=== PATIENT | female | born 1980 | race Caucasian/White ===

== ENCOUNTER 2018-03-02 12:07 | Day surgery (SDC) | payer SELFPAY ==
--- NOTE | 2018-03-02 | EMB_PTH ---
PATIENT: RICK PRESCOTT [place] [facility] [id number] AGE/SX: 37/F ROOM: RE03/02/[address]: Dr. Rick Bee MD : 1980 BED: DIS: 03/02/2018 SPEC #: [id number] RECD: 03/02/18 15:10 STATUS: JONO ADONIS #: [id number] JAKOB: 03/02/18 00:[address]: Rick Bee DEPT: SURGICAL PATHOLOGY RECD BY: Patrick Carrasco ENTERED: 03/02/18 15:11 SP TYPE: ENDOM BX/C EMILIE DR: Dr. Eh Bettencourt III, MD Tissues: Endometrium, NOS Procedures: Surgery Specimen Level IV HEADER OPERATION: Hysteroscopy, D & C, Mirena IUD insertion PRE-OP DIAGNOSIS: Menorrhagia, chronic anemia TISSUE SUBMITTED: Endometrial curettings MICROSCOPIC DIAGNOSIS Endometrial curettings: Disordered proliferative endometrium to simple hyperplasia without atypia. SJ:riana 03/06/18 MICROSCOPIC DESCRIPTION Slides are reviewed. GROSS DESCRIPTION Received in fixative is one container labeled with the patient's name and designated endometrial curettings. The specimen consists of multiple fragments of hemorrhagic soft tissue mixed with blood clot that in aggregate measure 7.5 x 3.5 x 0.6 cm. The entire specimen is submitted in six cassettes. / ELYSIA:riana 03/03/18 TC:5 CPT: 10913
[2018-03-02 12:43] VITALS: BP 102/63; PULSE 83; TEMP 36.7; O2SAT 100; BMI 23.9
[2018-03-02 12:51] LABS: Hematocrit 22.6 % (37-47); Hemoglobin 6.3 g/dl (12.0-15.0); Mean Corp Hgb Conc 27.9 g/gl (32-36); Mean Corpuscular Hgb 22.4 pg (27.0-32.0); Mean Corpuscular Volume 80.4 fL (81-99); Mean Platelet Vol. 9.4 fl (6.2-12.0); Platelet Count 376 K/mm3 (150-450); RBC Distribution Width CV 16.4 % (11.6-14.6); Red Blood Count 2.81 M/mm3 (4.2-5.4); White Blood Count 4.3 K/mm3 (4.4-11.0)
[2018-03-02 12:54] LABS: Scan Indicated on CBC? Y/N NO
[2018-03-02] MEDS: Ketorolac 60 MG/2 ML Vial IM (12:54)
[2018-03-02 13:03] LABS: Pregnancy, Serum, hCG Quali. NEGATIVE Negative (0-9 Nonpreg)
--- NOTE | 2018-03-02 14:42 | PCM.DC.D&C ---
Discharge Diet: No Restrictions Discharge Activity: Return to Normal Activity, May Shower, May Take a Tub Bath - in 2 weeks. Call your doctor if your incision/area has: Sudden Increased Bleeding, Increased Pain/ Swelling, Foul Smelling Discharge Call your doctor if you observe: Fever of 101 or Higher, Using more than one pad per hour, Shortness of breath, Dizziness, Fainting spells, Increased palpitations (irregular heartbeat) Allergies/Adverse Reactions: Allergies No Known Allergies Allergy (Verified 02/28/18 08:17) Medications to take at Discharge Multivitamin [Multiple Vitamins] 1 each PO DAILY 02/28/18 Primary Care Physician: Eh Bettencourt III, MD [Primary Care Provider] - Please Follow Up With: Christal Bee MD - [phone] When: 4 weeks or as needed. My office will call you to schedule iron infusions
[2018-03-02 14:50] VITALS: BP 102/63; BP 108/67; PULSE 85; RESP 18; TEMP 37.1; O2SAT 100
--- NOTE | 2018-03-02 14:54 | OP.PCM_ITS ---
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 The weighted speculum was placed in the vagina and the anterior lip of the cervix was grasped with a single-tooth tenaculum. A paracervical block was administered with [1% lidocaine with 1-100,000 epinephrine solution]. The cervix was dilated serially with Hegar dilators. The [5mm] hysteroscope was placed into the uterine cavity and the above findings were noted. Bilateral tubal ostia [were] identified. The hysteroscope was removed. A gentle sharp curettage was done of the uterine cavity. A large amount of endometrial tissue was removed from the uterine cavity. There were no discrete polyps. Hysteroscope was placed back into the uterus and this point there was just ragged endometrium present. The Mirena IUD was readied, inserted into the uterine fundus in the usual sterile fashion. The strings were cut to 2-1/2 cm. The instruments were removed from the vagina. The specimen was handed off and sent to pathology. All sponge and needle counts were correct. Vaginal sweep was performed by me. The patient was awakened and taken to the recovery room in stable condition. Hysteroscopic ins: 200 cc cc normal saline Hysteroscopic outs: 170 cc cc Findings: Endometrial cavity: Both tubal ostia identified, large amount of lush endometrium. No polyps or fibroids noted. The cavity shape is normal. The uterus sounded to 8 cm. Cervix: [normal] Vagina: [normal] Grafts/Implants Used: Mirena IUD - Complications none - Admit VTE Documentation VTE Present on Admission: No VTE Mechan Device Prophylaxis: SCD's VTE Pharm Prophylaxis ordered?: No Reason prophylaxis not ordered:: Procedure Not Indicated
[2018-03-02 14:55] VITALS: BP 102/63; BP 107/58; PULSE 80; RESP 18; O2SAT 100
[2018-03-02 15:00] VITALS: BP 102/63; BP 103/68; PULSE 84; RESP 18; O2SAT 100
[2018-03-02 15:05] VITALS: BP 102/63; BP 107/76; PULSE 74; RESP 18; TEMP 37.2; O2SAT 100
[2018-03-02 15:40] VITALS: BP 102/63
== END 2018-03-02 15:45 | disposition home or self-care (01) ==
LOC: SDC 12:09 → AC 12:10
PROVIDERS: Family Provider Family Medicine; PCP Family Medicine; Visit Provider Obstetrics & Gynecology
PROC: 0UDB8ZZ Extraction of Endometrium, Via Natural or Artificial Opening Endoscopic (ICD-10-PCS; CPT 58558; principal; 2018-03-02 13:15)
DX: N92.0 Excessive and frequent menstruation with regular cycle (principal); D50.0 Iron deficiency anemia secondary to blood loss (chronic); F17.200 Nicotine dependence, unspecified, uncomplicated
CPT/HCPCS: 58300; 58558; 84703; 85027; 88305; J7120